=== PATIENT | female | born 1995 | race Caucasian/White ===

== ENCOUNTER 2022-03-02 11:47 | Outpatient (CLI) | payer BC, OTHER, SELFPAY ==
--- NOTE | 2022-03-02 13:00 | CRLHL7_ITS ---
For Patients: As a result of the Cures Act, medical imaging exams and procedure reports are released immediately into your electronic medical record. You may view this report before your referring provider. If you have questions, please contact your health care provider. INDICATION: First trimester scan, establish dates. COMPARISON: None. TECHNIQUE: Real time trammell scale imaging of the pelvis was performed. FINDINGS: Sonographic imaging demonstrates a single living intrauterine gestation. The embryo demonstrates a regular cardiac rate measuring 173 beats per minute. The embryo`s crown rump length measurement of 2.1 cm corresponds to a gestational age of 8 weeks 5 days with a sonographic due date of 10/07/2022. There is a normal appearing yolk sac. There are no gross abnormalities noted within the embryo at this early state of development. The placenta has not yet developed. The gestational sac has a normal appearance. There is a 4.3 x 1.5 x 1.5 cm heterogeneous collection lateral and inferior to the gestational sac likely representing a subchorionic hemorrhage. A second 0.5 x 0.5 x 2.5 cm subchorionic hemorrhage is seen superior to the gestational sac.. The amount of fluid within the sac appears appropriate for gestational age. The cervix is closed. The myometrium appears normal. The ovaries are of normal size. There is a 1.7 x 1.5 x 1.8 cm thick-walled right ovarian cyst with peripheral hyperemia which may represent a hemorrhagic corpus luteal cyst. There are no suspicious fluid collections noted in the cul-de-sac. IMPRESSION: 1. Single living intrauterine gestation. Gestational age of 8 weeks 5 days with an estimated sonographic due date of 10/07/2022. 2. 4.3 cm and 2.5 cm subchorionic hemorrhages. Consider short-term interval follow-up. Dictated by John Colon MD @ 03/02/2022 1:50:42 PM (Electronically Signed)
== END 2022-03-02 11:48 | disposition home or self-care (01) ==
LOC: US 11:48
PROVIDERS: PCP Nurse Practitioner Family; Visit Provider Advanced Practice Midwife
DX: Z34.91 Encounter for supervision of normal pregnancy, unspecified, first trimester (principal); O20.9 Hemorrhage in early pregnancy, unspecified; Z3A.08 8 weeks gestation of pregnancy
CPT/HCPCS: 76817

== ENCOUNTER 2022-03-09 11:01 | Outpatient (CLI) | payer BC, OTHER, SELFPAY ==
--- NOTE | 2022-03-09 11:00 | CRLHL7_ITS ---
For Patients: As a result of the Century Cures Act, medical imaging exams and procedure reports are released immediately into your electronic medical record. You may view this report before your referring provider. If you have questions, please contact your health care provider. INDICATION: Follow-up subchorionic hemorrhage COMPARISON: 03/02/2022 TECHNIQUE: Real-time trammell-scale imaging of the pelvis was performed. FINDINGS: Sonographic imaging demonstrates a single living intrauterine gestation. The embryo demonstrates a regular cardiac rate measuring 163 beats per minute. The embryo`s crown-rump length measurement of 2.8 cm corresponds to a gestational age of 9 weeks 5 days with a sonographic due date of 10/07/2022. There is a normal-appearing yolk sac. There are no gross abnormalities noted within the embryo at this early state of development. The gestational sac has a normal appearance. There is a small 1.7 x 0.3 x 1.2 cm lower uterine segment perigestational hemorrhage. The amount of fluid within the sac appears appropriate for gestational age. IMPRESSION: Decreased size of lower uterine segment subchorionic hemorrhage now measuring 1.7 x 0.3 x 1.2 cm, previously measuring 4.3 x 1.5 x 1.5 cm. The subchorionic hemorrhage superior to the gestational sac is no longer present. Gestational age calculated at 9 weeks 5 days with a sonographic due date of 10/07/2022. Dictated by Srini Hassan MD @ 03/09/2022 12:03:37 PM (Electronically Signed)
== END 2022-03-09 11:02 | disposition home or self-care (01) ==
LOC: US 11:02
PROVIDERS: PCP Nurse Practitioner Family; Visit Provider Advanced Practice Midwife
DX: O46.8X1 Other antepartum hemorrhage, first trimester (principal); Z3A.09 9 weeks gestation of pregnancy
CPT/HCPCS: 76801

== ENCOUNTER 2022-05-16 09:15 | Outpatient (CLI) | payer BC, OTHER, SELFPAY ==
--- NOTE | 2022-05-16 09:15 | CRLHL7_ITS ---
For Patients: As a result of the Century Cures Act, medical imaging exams and procedure reports are released immediately into your electronic medical record. You may view this report before your referring provider. If you have questions, please contact your health care provider. INDICATION: Evaluate anatomy. COMPARISON: 03/02/2022, 03/09/2022 TECHNIQUE: Real time trammell scale imaging of the fetus was performed as well as color Doppler analysis of the umbilical vessels. FINDINGS: Sonographic imaging demonstrates a single living intrauterine gestation. Fetus demonstrates a regular cardiac rate of 152 beats per minute. Fetus has a breech position. The placenta lies along the right wall without evidence of placenta previa. The edge of the placenta is located 6.7 cm from the internal cervical os. Amniotic fluid volume appears normal. Single deepest vertical pocket: 4.4 cm. The cervix is closed and measures 3.1 cm in length. The composite ultrasound gestational age is calculated at 19 weeks 4 days with an estimated sonographic due date of 10/06/2022. The estimated weight is 296 grams which lies at the 33rd %. The following biometric measurements were obtained: Biparietal diameter: 4.5 cm/19 weeks 5 days 48th% Head circumference: 16.3 cm/19 weeks 1 day 16th% Abdominal circumference: 14.5 cm/19 weeks 6 days 51st% Femur length: 3.0 cm/19 weeks 6 days 23rd% The HC/AC ratio measures: 1.12 range (1.08-1.26) On anatomic survey, there is a normal appearance of the cerebral ventricles, cavum septi pellucidi, cisterna magna and cerebellum. The nose, lips, and facial profile appear normal. The cervical, thoracic and lumbar spine are well visualized and appear normal. There is a normal four-chamber heart view and the left and right ventricular outflow tracts appear normal. The diaphragm and stomach appear normal. The kidneys and bladder also appear normal. There is a normal three-vessel cord and cord insertion site. The four extremities appear normal. IMPRESSION: Normal OB ultrasound exam with concordance of clinical and sonographic dating. No intrinsic abnormalities noted on anatomic survey. Dictated by Srini Hassan MD @ 05/18/2022 11:07:22 AM (Electronically Signed)
== END 2022-05-16 09:16 | disposition home or self-care (01) ==
PROVIDERS: PCP Nurse Practitioner Family; Visit Provider Advanced Practice Midwife
DX: Z34.92 Encounter for supervision of normal pregnancy, unspecified, second trimester (principal); Z31.9 Encounter for procreative management, unspecified
CPT/HCPCS: 76805

== ENCOUNTER 2022-08-11 08:08 | Outpatient (CLI) | payer OTHER, SELFPAY ==
--- NOTE | 2022-08-11 08:15 | CRLHL7_ITS ---
For Patients: As a result of the Cures Act, medical imaging exams and procedure reports are released immediately into your electronic medical record. You may view this report before your referring provider. If you have questions, please contact your health care provider. INDICATION: Evaluate position. TECHNIQUE: Transabdominal obstetrical ultrasound. COMPARISON : May 16, 2022. FINDINGS: Single living intrauterine in breech presentation. The placenta lies along the right lateral wall without evidence for placenta previa. heart rate 163 beats per minute. Normal amniotic fluid volume index of 17 cm. Single deepest pocket measurement 8.5 cm. IMPRESSION: Single living intrauterine in breech presentation. Right lateral placental location. Dictated by Matias Alexandra MD @ 08/11/2022 10:30:25 AM (Electronically Signed)
== END 2022-08-11 08:09 | disposition home or self-care (01) ==
LOC: US 08:10
PROVIDERS: PCP Nurse Practitioner Family; Visit Provider Advanced Practice Midwife
DX: Z34.93 Encounter for supervision of normal pregnancy, unspecified, third trimester (principal); Z3A.32 32 weeks gestation of pregnancy
CPT/HCPCS: 76815

== ENCOUNTER 2022-08-22 16:03 | Outpatient (CLI) | payer OTHER, SELFPAY ==
[2022-08-22 16:16] VITALS: BP 115/74; PULSE 84; RESP 16; TEMP 37.2; O2SAT 100
[2022-08-22 16:17] VITALS: BP 115/74; PULSE 78
--- NOTE | 2022-08-22 17:02 | P.OBO_ITS ---
OB Outpatient HPI History of Present Illness History of Present Illness: Beti is a 26 year old at 33 5/7 weeks gestation by LMP, GARY 10/05/2022, presents after recommendation from home card boxer recommended further evaluation following audible arrhythmia by doppler. She denies contractions, abdominal pain, leaking of fluid, or discharge. +FM. Fetus is currently in breech presentation. She is seeing Shannon Son for her care. Most recent US was on 08/11/2022 for concern of twins with hand held ultrasound by radiation oncology therapist. Report: Normal amniotic fluid volume index of 17 cm. Single deepest pocket measurement 8.5 cm. IMPRESSION: Single living intrauterine in breech presentation. Right lateral placental location.Dictated by Matias Alexandra MD @ 08/11/2022 10:30:25 AM Baby moving naturally: Yes Bleeding: No Contractions: No Leaking fluid: No Discharge: No Heartburn: No Back pain: No Meds Home Medications and Allergies Home Medications Medication Instructions Recorded Confirmed Type prenat.vits,serena,ahh-mbri-powpw 1 tab PO QDAY 04/07/22 08/11/22 History pyridoxine (vitamin B6) 100 mg 100 mg PO QDAY 04/08/22 08/11/22 History tablet Allergies Allergy/AdvReac Type Severity Reaction Status Date / Time No Known Drug Allergies Allergy Verified 08/11/22 09:49 [facility] [place] Medical History (Updated 08/22/22 @ 17:08 by Anahi Beckham CNM) Anxiety Surgical History (Updated 03/01/22 @ 10:44 by Cris Pacheco) History of third molar tooth extraction Family History (Updated 03/02/22 @ 14:34 by Ladi Whitaker CNM) Brother Alcohol dependence Depression Mental disorder Maternal Grandfather Lung disease Paternal Grandfather Alcohol dependence Heart disease Lung disease Skin cancer Father High blood pressure Skin cancer Paternal Grandmother Alcohol dependence Mother No problems noted. Social History (Updated 03/02/22 @ 14:39 by Ladi Whitaker CNM) Narrative: vegetarian, wears glasses Are you following a diet prescribed by a doctor: No Are you following a special diet: Yes (vegetarian, eats probably 1 meat product a week) Highest level of school completed/degree received: Master's degree Physical activity type: walking How many days of moderate to strenuous exercise, like a brisk walk, did you do in the last 7 days: 5 Smoking Status: Never smoker Second hand tobacco smoke exposure: No Non-prescribed substance use: denies use Caffeine: No (not currently) History History 1 Elective abortions 0 Para 0 Spontaneous abortions 0 Hx # Term Pregnancies 0 Ectopic pregnancies 0 Hx # Pregnancies 0 Multiple births 0 Number of Living Children 0 OB - H&P: Exam Physical Exam Vital signs: Temp Pulse Resp BP Pulse Ox 99 F 78 16 115/74 100 08/22/22 16:16 08/22/22 16:17 08/22/22 16:16 08/22/22 16:17 08/22/22 16:16 Constitutional Constitutional: no acute distress Routine HEENT Exam Head: Present atraumatic Detailed Labor and Delivery Exam Patient Gravid: Yes Fetus (Single) Position: Other (Breech) Heart Rate Baseline: 125 (Audible arrhythmia ) Monitor Accelerations: Present Monitor Decelerations: None Immigration Services Officer Variability: Moderate (6-25) Assessment and Plan Assessment and plan (1) arrhythmia affecting , antepartum: Status: Acute (2) Breech presentation: Status: Acute Plan arrhythmia Breech presentation NST reactive Recommended referral and follow-up with Perinatologist/Maternal Medicine Specialist for evaluation of arrhythmia. Offered [facility] or [facility]. She prefers [facility]. Reviewed that arrhythmia is often benign but have a possible cause such as cardiac abnormality. She agrees with plan. Referral placed to [facility]. She will follow-up with her home card boxer as scheduled.
--- NOTE | 2022-08-22 18:54 | PC.OBNST ---
NST Note NST Note Start: 08/22/22 16:04 Freq: ONCE Status: Active Protocol: Document 08/22/22 16:52 CUDDYH (Rec: 08/22/22 18:54 CUDDYH [id number]) NST Note 1 Para (# of births) 0 EDC 10/05/22 Gestational Age In Weeks & Days 33 Weeks & 5 Days Patient Presented with Complaint(s) of Other Other Complaints Here due to her home cathode ray tube assembler suggesting she been seen for a possible heart arrythmia for baby. Reactive Yes Appropriate for Gestational Age Yes SWAPNIL Ye RN Date 08/22/22 Reactive Yes Appropriate for Gestational Age Yes SWAPNIL Hagan RNC Date 08/22/22 OB NST charge Yes Complete NST Note via Write Note Yes The provider's electronic signature indicates the NST is reactive/appropriate for gestational age. *Note to provider: If an addendum is required, open the patient's chart and click on the note under the Nurse/Allied Health tab.
== END 2022-08-22 16:52 | disposition home or self-care (01) ==
LOC: OB OUT 16:04 → OB 16:07
PROVIDERS: PCP Nurse Practitioner Family; Visit Provider Advanced Practice Midwife
DX: O36.8330 Maternal care for abnormalities of the fetal heart rate or rhythm, third trimester, not applicable or unspecified (principal); Z3A.33 33 weeks gestation of pregnancy
CPT/HCPCS: 59025; 99213

== ENCOUNTER 2022-12-28 13:40 | Outpatient (CLI) | payer OTHER, SELFPAY ==
--- NOTE | 2022-12-28 14:00 | CRLHL7_ITS ---
For Patients: As a result of the Century Cures Act, medical imaging exams and procedure reports are released immediately into your electronic medical record. You may view this report before your referring provider. If you have questions, please contact your health care provider. INDICATION: Confirm bicornuate uterus. Confirmed uterine shape . TECHNIQUE: Transabdominal and transvaginal pelvic ultrasound. Grayscale images obtained. FINDINGS: The uterus measures 6.2 x 2.6 x 5.1 cm. The endometrial stripe measures 3 mm. There appears to be an arcuate shaped uterus or potentially a sub septate uterus. This does not appear to be a true bicornuate uterus. Normal ovaries with multiple small normal-appearing follicles. The right ovary right ovary measures 4.1 x 2.1 x 2.6 cm. The left ovary measures 3.9 x 1.5 x 2.8 cm. No free pelvic fluid. IMPRESSION: 1. Arcuate versus a sub septate uterine appearance. 2. Normal ovaries. 3. No free pelvic fluid. Dictated by Matias Alexandra MD @ 12/29/2022 10:12:03 AM (Electronically Signed)
== END 2022-12-28 13:41 | disposition home or self-care (01) ==
LOC: US 13:42
PROVIDERS: PCP Nurse Practitioner Family; Visit Provider Doula
DX: O34.599 Maternal care for other abnormalities of gravid uterus, unspecified trimester (principal); Q51.3 Bicornate uterus
CPT/HCPCS: 76830; 76856

== ENCOUNTER 2024-02-12 11:54 | Outpatient (CLI) | payer BC, SELFPAY ==
--- NOTE | 2024-02-18 09:00 | ONC.NURNOTE ---
Received referral for hematology for family history f hemochromatosis. Discussed with driller operator and requested full iron panel with ferritin. All labs shown to Dr. Peterson, ferritin is not elevated so patient does not meet the criteria to be seen by driller operator. Her labs do not show hemochromatosis. This message was relayed to PCP in [place] via message with front desk officer staff. Unable to leave message for patient.
== END 2024-02-12 11:55 | disposition home or self-care (01) ==
PROVIDERS: PCP Nurse Practitioner Family; Visit Provider Nurse Practitioner Family
DX: Z83.2 Family history of diseases of the blood and blood-forming organs and certain disorders involving the immune mechanism (principal)
CPT/HCPCS: 82728; 83540; 83550

== ENCOUNTER 2025-01-27 10:53 | Outpatient (CLI) | payer BC, SELFPAY ==
[2025-01-27 14:04] LABS: Trichomonas No Trichomonas Seen (None Seen)
[2025-01-30 03:34] LABS: HPV Source Vaginal
[2025-02-02 15:36] LABS: Pap Test Digital Imaging Done; Pap Test Reviewed by Pathologi Done
== END 2025-01-27 10:54 | disposition home or self-care (01) ==
PROVIDERS: PCP Nurse Practitioner Family; Visit Provider Nurse Practitioner Family
DX: N89.8 Other specified noninflammatory disorders of vagina (principal); R35.0 Frequency of micturition; M25.50 Pain in unspecified joint; Z13.0 Encounter for screening for diseases of the blood and blood-forming organs and certain disorders involving the immune mechanism; Z83.49 Family history of other endocrine, nutritional and metabolic diseases
CPT/HCPCS: 81001; 82728; 83540; 83735; 84443; 85025; 87086; 87210; 87624; 87625; 88141; 88142; 88175

== ENCOUNTER 2025-02-12 10:45 | Outpatient (CLI) | payer BC, SELFPAY ==
--- NOTE | 2025-02-12 10:45 | CRLHL7_ITS ---
For Patients: As a result of the Cures Act, medical imaging exams and procedure reports are released immediately into your electronic medical record. You may view this report before your referring provider. If you have questions, please contact your health care provider. BILATERAL DIAGNOSTIC MAMMOGRAM WITH COMPUTER-AIDED DETECTION AND TOMOSYNTHESIS RIGHT BREAST ULTRASOUND CLINICAL HISTORY: RIGHT breast lump. COMPARISON: None. TECHNIQUE: Digital RIGHT mammogram in two projections with computer-aided detection. Tomosynthesis was used in this interpretation. Real-time ultrasound imaging of RIGHT breast with imaging documentation. BREAST COMPOSITION: The breasts are extremely dense, which lowers the sensitivity of mammography. FINDINGS: RIGHT breast mammogram images submitted. Benign calcifications are present. No suspicious masses or architectural distortion. RIGHT axillary lymph node noted. Targeted RIGHT breast ultrasound performed at 10 o`clock, 6 cm from the nipple. Normal dense fibroglandular tissue is present. No suspicious mass or fibrocystic change. Normal RIGHT axillary lymph node. IMPRESSION: No suspicious findings. No evidence of malignancy. RECOMMENDATIONS: Age-appropriate screening mammography. A lay language report of this examination will be provided to the patient. BI-RADS Category 2: Benign Dictated by Srini Hassan MD @ 02/12/2025 12:32:26 PM /sp SP/Dictated by: Srini Hassan MD @ 02/12/2025 12:32:00 PM (Electronically Signed)
--- NOTE | 2025-02-12 11:15 | CRLHL7_ITS ---
For Patients: As a result of the Century Cures Act, medical imaging exams and procedure reports are released immediately into your electronic medical record. You may view this report before your referring provider. If you have questions, please contact your health care provider. PLEASE SEE BILATERAL BREAST DIAGNOSTIC MAMMOGRAM PERFORMED SAME DAY. CRL/sp SP/Dictated by: Srini Hassan MD @ 02/12/2025 12:32:00 PM (Electronically Signed)
== END 2025-02-12 10:46 | disposition home or self-care (01) ==
LOC: MAMMO 10:46
PROVIDERS: PCP Nurse Practitioner Family; Visit Provider Nurse Practitioner Family
DX: N63.13 Unspecified lump in the right breast, lower outer quadrant (principal)
CPT/HCPCS: 76642; 77065; G0279